=== PATIENT | male | born 1975 | race Caucasian/White ===

== ENCOUNTER 2018-06-11 16:36 | Emergency (ER) | payer BC, OTHER ==
[2018-06-11 17:12] LABS: #Basophils 0.1 thou/uL (0.0-0.2); #Eosinphils 0.1 thou/uL (0.0-0.7); #Lymphocytes 1.3 thou/uL (1.20-3.40); #Monocytes 0.5 thou/uL (0.11-0.59); #Neutrophils 3.2 thou/uL (1.40-6.50); %Basophils 1.4 % (0.0-1.0); %Eosinophils 2.5 % (0.0-10.0); %Lymphocytes 25.5 % (21.0-51.0); %Monocytes 8.7 % (0.0-10.0); %Neutrophils 61.9 % (42.0-75.0); Hemoglobin 11.3 g/dL (14.0-18.0); Mean Corpuscular HGB CONC 34.7 g/dL (32.0-36.0); Mean Corpuscular Hemoglobin 30.1 pg (27.0-31.0); Mean Corpuscular Volume 86.8 fL (78.0-98.0); Mean Platelet Volume 6.8 fL (7.4-10.4); Platelet Count 324 thou/uL (130-400); RBC Distribution Width 11.8 % (11.5-14.5); Red Blood Cell (RBC) Count 3.77 mill/uL (4.70-6.10); White Blood Cell (WBC) Count 5.1 thou/uL (4.8-10.8)
[2018-06-11 17:33] LABS: ALT (SGPT) 11 U/L (8-55); AST (SGOT) 16 U/L (5-34); Albumin 3.9 g/dL (3.5-5.0); Alkaline Phosphatase 39 U/L (40-150); Anion Gap 12 mmol/L (10-20); BUN (Urea Nitrogen) 15 mg/dL (8.9-20.6); Bilirubin, Total 0.5 mg/dL (0.2-1.2); Calc. Creatinine Clearance 0 mL/min (70-130); Carbon Dioxide 27 mmol/L (22-29); Chloride 103 mmol/L (98-107); Estimated GFR-MDRD 46; Globulin 2.8 g/dL (2.4-3.5); Glucose 110 mg/dL (70-105); Protein, Total 6.7 g/dL (6.0-8.3); Sodium 139 mmol/L (136-145)
[2018-06-11 17:41] LABS: INR-International Normal Ratio 1.1; PTT 27.5 SEC (22.9-36.1)
[2018-06-11 18:12] LABS: CKMB 0.6 ng/mL (0-6.6); Troponin I Less than 0.010 ng/mL (< 0.028)
[2018-06-11 18:20] LABS: Bilirubin Negative (Negative); Blood, Urine Negative (Negative); Clarity CLEAR (Clear); Glucose, Urine (Dipstick) Negative (Negative); Leukocyte Negative (Negative); Nitrite Negative (Negative); Protein, Urine (Dipstick) Negative (Neg-Trace); Specific Gravity, Urine 1.017 (1.002-1.036); Urobilinogen 0.2 mg/dL (0.2-1.0); pH, Urine 5.5 (5.0-9.0)
[2018-06-11] MEDS ORDERED: Potassium Chloride 20 MEQ TAB ONE (18:44)
== END 2018-06-11 20:10 | disposition home or self-care (01) ==
LOC: ERS 16:36
DX: E86.0 Dehydration (principal); E87.6 Hypokalemia; I10 Essential (primary) hypertension; J45.909 Unspecified asthma, uncomplicated; Z79.899 Other long term (current) drug therapy
CPT/HCPCS: 36415; 80053; 81003; 82553; 83690; 84484; 85025; 85610; 85730; 86850; 86900; 86901; 93005; 96360

== ENCOUNTER 2023-07-22 18:59 | Inpatient (IN) | payer BC, OTHER ==
[~2023-07-22 18:59] MED LIST: Iopamidol-370 76% 500 ML MDV (1 ML CHARGE) ONE
[2023-07-22] MEDS ORDERED: Cefepime 2 GM VIAL ONE (19:30)
[2023-07-22 19:34] LABS: Hemoglobin 12.2 g/dL (14.0-18.0); Mean Corpuscular Hemoglobin 25.4 pg (27.0-31.0); Mean Corpuscular Volume 76.9 fl (78.0-98.0); Mean Platelet Volume 8.9 fL (7.4-10.4); Platelet Count 359 10x3/uL (130-400); RBC Distribution Width 15.8 % (11.5-14.5); Red Blood Cell (RBC) Count 4.81 mill/uL (4.70-6.10); White Blood Cell (WBC) Count 14.8 10x3/uL (4.8-10.8)
[2023-07-22 19:38] LABS: Delete Auto Diff?? YES; Manual Diff?? YES
[2023-07-22] MEDS ORDERED: Acetaminophen 500 MG TAB ONE (19:43)
[2023-07-22] MEDS ORDERED: Vancomycin 1 GM/200 ML (FROZEN) BAG ONE (19:43)
[2023-07-22 19:57] LABS: ALT (SGPT) 18 U/L (8-55); AST (SGOT) 19 U/L (5-34); Albumin 3.4 g/dL (3.5-5.0); Alkaline Phosphatase 55 U/L (40-110); Anion Gap 17 mmol/L (10-20); BUN (Urea Nitrogen) 10 mg/dL (8.9-20.6); Bilirubin, Total 0.5 mg/dL (0.2-1.2); Calc. Creatinine Clearance 0 mL/min (70-130); Calcium 8.2 mg/dL (7.8-10.44); Carbon Dioxide 21 mmol/L (22-29); Chloride 97 mmol/L (98-107); Estimated GFR 62; Globulin 3.2 g/dL (2.4-3.5); Glucose 141 mg/dL (70-105); Lipase 10 U/L (8-78); Magnesium 1.4 mg/dL (1.6-2.6); Potassium 2.7 mmol/L (3.5-5.1); Protein, Total 6.6 g/dL (6.0-8.3); Sodium 132 mmol/L (136-145)
[2023-07-22 19:59] LABS: SARS-CoV-2 NAA Rapid Test Not Detected (NotDetected)
[2023-07-22 20:03] LABS: Band 49 % (5-11); CellaVision Operator ID LAB.JMM; Lymphocytes 4 % (21-51); Monocytes 8 % (0-10); Neutrophil 40 % (42-75); Platelet Adequacy Comment Platelets Normal; RBC Morphology Within Normal Limits; Total Cell Count 105
[2023-07-22] MEDS ORDERED: Potassium Chloride 20 MEQ TAB ONE (22:46)
[2023-07-22] MEDS ORDERED: Bisacodyl 5 MG TAB PO PRN (22:54)
[2023-07-22] MEDS ORDERED: HYDROcodone/Acetaminophen 5/325 mg Tablet PO PRN (22:54)
[2023-07-22] MEDS ORDERED: Acetaminophen 325 MG TAB PO PRN (22:54)
[2023-07-22] MEDS ORDERED: Piperacillin/Tazobactam 3.375 GM in Sodium Chloride 0.9% 100 ML IVPB SCH (23:00)
[2023-07-22] MEDS ORDERED: Sodium Chloride 0.9% 1,000 ML IV SCH (23:00)
[2023-07-22 23:04] LABS: Bacteria/HPF None Seen HPF (None Seen); Bilirubin Negative (Negative); Blood, Urine Negative (Negative); CAUTI Indications for Culture Fever or rigors; Clarity Clear (Clear); Glucose, Urine (Dipstick) Normal (Negative); Ketone, Urine Negative (Negative); Leukocyte Negative Leu/uL (Negative); Nitrite Negative (Negative); Protein, Urine (Dipstick) Negative (Neg-Trace); RBC/HPF None Seen HPF (0-3); Specific Gravity, Urine 1.016 (1.002-1.036); Squamous Epithelial None Seen HPF (0-3); Urobilinogen Normal mg/dL (Less than 2); WBC/HPF 0-3 HPF (0-3); pH, Urine 6.5 (5.0-9.0)
[2023-07-22 23:05] LABS: Urine Culture Reflex No No
[2023-07-22 23:19] LABS: Lactic Acid 1.4 mmol/L (0.5-2.2)
[2023-07-22 23:34] LABS: Troponin I Less than 0.010 ng/mL (< 0.028)
[2023-07-22] MEDS ORDERED: Piperacillin/Tazobactam 4.5 GM in Sodium Chloride 0.9% 100 ML IVPB SCH (23:59)
[2023-07-23] VITALS: BMI 48.6
[2023-07-23] MEDS ORDERED: Melatonin 3 MG TAB PO PRN ×2 (00:33→00:39)
[2023-07-23] MEDS ORDERED: VANCOMYCIN 2 GRAM/500 ML BAG 2 GM in Premix Bag 1 BAG IVPB SCH (00:45)
[2023-07-23] MEDS ORDERED: Potassium Chloride 20 MEQ TAB PO SCH (02:00)
[2023-07-23] MEDS: Piperacillin/Tazobactam 3.375 GM in Sodium Chloride 0.9% 100 ML IVPB SCH ×2 (05:40→09:43)
[2023-07-23 06:18] LABS: #Basophils 0.1 thou/uL (0.0-0.2); #Monocytes 1.3 thou/uL (0.11-0.59); #Neutrophils 13.7 thou/uL (1.40-6.50); %Basophils 0.3 % (0.0-1.0); %Eosinophils 0.2 % (0.0-10.0); %Lymphocytes 8.5 % (21.0-51.0); %Monocytes 7.7 % (0.0-10.0); Hemoglobin 11.9 g/dL (14.0-18.0); Mean Corpuscular HGB CONC 33.1 g/dL (32.0-36.0); Mean Corpuscular Hemoglobin 25.4 pg (27.0-31.0); Mean Corpuscular Volume 76.8 fl (78.0-98.0); Mean Platelet Volume 9.2 fL (7.4-10.4); Platelet Count 390 10x3/uL (130-400); RBC Distribution Width 16.1 % (11.5-14.5); Red Blood Cell (RBC) Count 4.69 mill/uL (4.70-6.10); White Blood Cell (WBC) Count 16.5 10x3/uL (4.8-10.8)
[2023-07-23 06:50] LABS: Troponin I Less than 0.010 ng/mL (< 0.028)
[2023-07-23 06:56] LABS: ALT (SGPT) 18 U/L (8-55); AST (SGOT) 15 U/L (5-34); Albumin 3.3 g/dL (3.5-5.0); Alkaline Phosphatase 58 U/L (40-110); Anion Gap 14 mmol/L (10-20); BUN (Urea Nitrogen) 10 mg/dL (8.9-20.6); Bilirubin, Total 0.9 mg/dL (0.2-1.2); Calc. Creatinine Clearance 158 mL/min (70-130); Carbon Dioxide 23 mmol/L (22-29); Chloride 102 mmol/L (98-107); Estimated GFR 74; Globulin 3.2 g/dL (2.4-3.5); Glucose 112 mg/dL (70-105); Potassium 2.9 mmol/L (3.5-5.1); Protein, Total 6.5 g/dL (6.0-8.3); Sodium 136 mmol/L (136-145)
[2023-07-23] MEDS ORDERED: Potassium Bicarbonate/Cit Ac 20 MEQ TAB PO SCH (08:30)
[2023-07-23] MEDS ORDERED: Sodium Bicarbonate Tab 325 MG TAB PO SCH (09:00)
[2023-07-23] MEDS ORDERED: Vancomycin 1.5 GRAM/300 ML BAG 1.5 GM in Premix Bag 1 BAG IVPB SCH (09:00)
[2023-07-23] MEDS: Heparin 5,000 UNITS/ML VIAL SC SCH ×2 (09:48→15:46)
[2023-07-23 12:43] VITALS: BP 120/80; TEMP 97.6
[2023-07-23 13:22] LABS: Campy jejuni + coli by PCR Negative (Negative); STEC Shiga Toxin 1+2 Negative (Negative); Salmonella spp. by PCR Negative (Negative); Shigella spp + EIEC by PCR POSITIVE (Negative)
[2023-07-23] MEDS ORDERED: VANCOMYCIN 1.25 GM/250 ML BAG 1.25 GM in Premix Bag 1 BAG IVPB SCH (14:00)
[2023-07-23 15:22] LABS: Troponin I 0.017 ng/mL (< 0.028)
== END 2023-07-23 17:42 | disposition home or self-care (01) | DRG 862 ==
LOC: ERS 18:59 → SJJU 22:11 → OBSVTOIN 07-23 12:41
PROVIDERS: ADMIT Internal Medicine Nephrology; ATTEND Hospitalist
DX: T81.49XA Infection following a procedure, other surgical site, initial encounter (principal); A41.9 Sepsis, unspecified organism; L03.311 Cellulitis of abdominal wall; E87.20 Acidosis, unspecified; Z68.42 Body mass index [BMI] 45.0-49.9, adult; A04.9 Bacterial intestinal infection, unspecified; A09 Infectious gastroenteritis and colitis, unspecified; N17.9 Acute kidney failure, unspecified; I10 Essential (primary) hypertension; D50.9 Iron deficiency anemia, unspecified; J45.909 Unspecified asthma, uncomplicated; Z20.822 Contact with and (suspected) exposure to COVID-19; E87.6 Hypokalemia; E66.9 Obesity, unspecified; I95.9 Hypotension, unspecified; Y83.8 Other surgical procedures as the cause of abnormal reaction of the patient, or of later complication, without mention of misadventure at the time of the procedure
CPT/HCPCS: 36415; 71045; 74177; 80053; 81001; 83605; 83690; 83735; 84484; 85025; 87040; 87086; 87324; 87449; 87505; 93005; J0692; J2543; J3370; J3370-JW; J3490; J7050

== ENCOUNTER 2023-08-04 11:53 | Inpatient (IN) | payer BC, OTHER ==
[2023-08-04 12:29] LABS: #Basophils 0.1 thou/uL (0.0-0.2); #Eosinphils 0.2 thou/uL (0.0-0.7); #Monocytes 0.4 thou/uL (0.11-0.59); #Neutrophils 6.5 thou/uL (1.40-6.50); %Basophils 0.7 % (0.0-1.0); %Eosinophils 1.8 % (0.0-10.0); %Lymphocytes 16.8 % (21.0-51.0); %Neutrophils 75.4 % (42.0-75.0); Hematocrit 37.4 % (42.0-52.0); Hemoglobin 12.3 g/dL (14.0-18.0); Mean Corpuscular HGB CONC 32.9 g/dL (32.0-36.0); Mean Corpuscular Hemoglobin 25.4 pg (27.0-31.0); Mean Corpuscular Volume 77.3 fl (78.0-98.0); Platelet Count 529 10x3/uL (130-400); RBC Distribution Width 16.5 % (11.5-14.5); Red Blood Cell (RBC) Count 4.84 mill/uL (4.70-6.10); White Blood Cell (WBC) Count 8.7 10x3/uL (4.8-10.8)
[2023-08-04] MEDS ORDERED: Vancomycin 1 GM/200 ML (FROZEN) BAG ONE (12:46)
[2023-08-04] MEDS ORDERED: Cefepime 2 GM VIAL ONE (12:46)
[2023-08-04 12:54] LABS: ALT (SGPT) 25 U/L (8-55); AST (SGOT) 30 U/L (5-34); Alkaline Phosphatase 58 U/L (40-110); Anion Gap 17 mmol/L (10-20); BUN (Urea Nitrogen) 12 mg/dL (8.9-20.6); Bilirubin, Total 0.5 mg/dL (0.2-1.2); Calc. Creatinine Clearance 0 mL/min (70-130); Calcium 9.2 mg/dL (7.8-10.44); Carbon Dioxide 25 mmol/L (22-29); Chloride 100 mmol/L (98-107); Estimated GFR 82; Glucose 97 mg/dL (70-105); Potassium 3.3 mmol/L (3.5-5.1); Sodium 139 mmol/L (136-145)
[2023-08-04] MEDS ORDERED: VANCOMYCIN 2 GRAM/500 ML BAG 2 GM in Premix Bag 1 BAG IVPB SCH (13:30)
[2023-08-04 14:38] LABS: Bacteria/HPF None Seen HPF (None Seen); Bilirubin Negative (Negative); Blood, Urine Negative (Negative); CAUTI Indications for Culture Pelvic or flank pain; Clarity Clear (Clear); Glucose, Urine (Dipstick) Normal (Negative); Ketone, Urine Negative (Negative); Leukocyte Negative Leu/uL (Negative); Nitrite Negative (Negative); Protein, Urine (Dipstick) Negative (Neg-Trace); RBC/HPF 0-3 HPF (0-3); Specific Gravity, Urine 1.019 (1.002-1.036); Squamous Epithelial None Seen HPF (0-3); Urobilinogen Normal mg/dL (Less than 2); WBC/HPF 0-3 HPF (0-3)
[2023-08-04 14:40] LABS: Urine Culture Reflex No No
[2023-08-04] MEDS ORDERED: HYDROcodone/Acetaminophen 5/325 mg Tablet PO PRN ×2 (15:03)
[2023-08-04] MEDS ORDERED: Acetaminophen 325 MG TAB PO PRN (15:03)
[2023-08-04] MEDS ORDERED: Pharmacy to Dose VANCOMYCIN, CEFEPIME IVPB PRN (15:07)
[2023-08-04] MEDS ORDERED: Potassium Chloride 20 MEQ TAB PO SCH (15:15)
[2023-08-04] MEDS ORDERED: Albuterol 200 PUFF (6.7GM INHALER) INH PRN (15:15)
[2023-08-04 16:56] VITALS: BMI 48.2
[2023-08-04] MEDS: Mometasone 100 MCG/Formoterol 5 MCG 120 PUFF INHALER INH SCH (18:46)
[2023-08-04] MEDS ORDERED: Melatonin 3 MG TAB PO PRN (20:07)
[2023-08-05] MEDS ORDERED: Cefepime 1 GM in Sodium Chloride 0.9% 100 ML IVPB SCH (01:00)
[2023-08-05] MEDS: Vancomycin 1.5 GRAM/300 ML BAG 1.5 GM in Premix Bag 1 BAG IVPB SCH ×2 (02:22→15:24)
[2023-08-05 07:06] LABS: #Basophils 0.1 thou/uL (0.0-0.2); #Eosinphils 0.3 thou/uL (0.0-0.7); #Monocytes 0.5 thou/uL (0.11-0.59); #Neutrophils 5.5 thou/uL (1.40-6.50); %Basophils 0.6 % (0.0-1.0); %Eosinophils 3.4 % (0.0-10.0); %Lymphocytes 19.3 % (21.0-51.0); %Monocytes 6.9 % (0.0-10.0); %Neutrophils 69.4 % (42.0-75.0); Hemoglobin 11.2 g/dL (14.0-18.0); Mean Corpuscular Hemoglobin 24.9 pg (27.0-31.0); Mean Platelet Volume 9.2 fL (7.4-10.4); Platelet Count 474 10x3/uL (130-400); RBC Distribution Width 16.6 % (11.5-14.5); Red Blood Cell (RBC) Count 4.49 mill/uL (4.70-6.10); White Blood Cell (WBC) Count 7.9 10x3/uL (4.8-10.8)
[2023-08-05] MEDS: Mometasone 100 MCG/Formoterol 5 MCG 120 PUFF INHALER INH SCH ×2 (07:13→19:18)
[2023-08-05 07:28] LABS: Anion Gap 13 mmol/L (10-20); BUN (Urea Nitrogen) 10 mg/dL (8.9-20.6); Calc. Creatinine Clearance 195 mL/min (70-130); Calcium 8.4 mg/dL (7.8-10.44); Carbon Dioxide 25 mmol/L (22-29); Chloride 103 mmol/L (98-107); Estimated GFR 96; Glucose 93 mg/dL (70-105); Potassium 3.2 mmol/L (3.5-5.1); Sodium 138 mmol/L (136-145)
[2023-08-05] MEDS: Loratadine 10 MG TAB PO SCH (08:08)
[2023-08-05] MEDS: Lisinopril/Hydrochlorothiazide 10 mg/12.5 mg Tablet PO SCH (08:09)
[2023-08-05] MEDS ORDERED: EMTRICITABINE PO SCH (09:00)
[2023-08-05] MEDS ORDERED: TENOFOV ALAFENAM PO SCH (09:00)
[2023-08-05] MEDS: Cefepime 2 GM in Sodium Chloride 0.9% 100 ML IVPB SCH (13:00)
[2023-08-05] MEDS: Melatonin 3 MG TAB PO SCH (20:07)
[2023-08-05] MEDS: Potassium Chloride 20 MEQ TAB PO SCH (20:08)
[2023-08-06] MEDS: Cefepime 2 GM in Sodium Chloride 0.9% 100 ML IVPB SCH ×2 (01:32→13:58)
[2023-08-06 02:53] LABS: Vancomycin, Trough 14.3 ug/mL
[2023-08-06] MEDS: Vancomycin 1.5 GRAM/300 ML BAG 1.5 GM in Premix Bag 1 BAG IVPB SCH ×2 (03:03→15:55)
[2023-08-06] MEDS ORDERED: Vancomycin 1.5 GRAM/300 ML BAG 1.5 GM in Premix Bag 1 BAG IVPB SCH (04:00)
[2023-08-06 05:49] LABS: #Basophils 0.1 thou/uL (0.0-0.2); #Eosinphils 0.3 thou/uL (0.0-0.7); #Monocytes 0.7 thou/uL (0.11-0.59); #Neutrophils 5.2 thou/uL (1.40-6.50); %Basophils 0.8 % (0.0-1.0); %Monocytes 8.2 % (0.0-10.0); %Neutrophils 65.6 % (42.0-75.0); Hematocrit 34.6 % (42.0-52.0); Hemoglobin 11.1 g/dL (14.0-18.0); Mean Corpuscular HGB CONC 32.1 g/dL (32.0-36.0); Mean Corpuscular Hemoglobin 25.2 pg (27.0-31.0); Mean Corpuscular Volume 78.6 fl (78.0-98.0); Mean Platelet Volume 8.8 fL (7.4-10.4); Platelet Count 445 10x3/uL (130-400); RBC Distribution Width 16.6 % (11.5-14.5); White Blood Cell (WBC) Count 7.9 10x3/uL (4.8-10.8)
[2023-08-06 06:21] LABS: Anion Gap 10 mmol/L (10-20); BUN (Urea Nitrogen) 11 mg/dL (8.9-20.6); Calc. Creatinine Clearance 206 mL/min (70-130); Calcium 8.7 mg/dL (7.8-10.44); Carbon Dioxide 27 mmol/L (22-29); Chloride 104 mmol/L (98-107); Estimated GFR 102; Glucose 94 mg/dL (70-105); Potassium 3.1 mmol/L (3.5-5.1); Sodium 138 mmol/L (136-145)
[2023-08-06] MEDS: Mometasone 100 MCG/Formoterol 5 MCG 120 PUFF INHALER INH SCH ×2 (06:29→19:08)
[2023-08-06] MEDS: Potassium Chloride 20 MEQ TAB PO SCH ×2 (08:51→20:12)
[2023-08-06] MEDS: Loratadine 10 MG TAB PO SCH (08:51)
[2023-08-06] MEDS: Lisinopril/Hydrochlorothiazide 10 mg/12.5 mg Tablet PO SCH (08:52)
[2023-08-06] MEDS: Amlodipine 10 MG TAB PO SCH (08:52)
[2023-08-06] MEDS: Hydrochlorothiazide 25 MG TAB PO SCH (08:52)
[2023-08-06] MEDS ORDERED: Loratadine 10 MG TAB PO SCH (09:00)
[2023-08-06] MEDS ORDERED: Iron Polysaccharides Complex 150 MG CAP PO SCH (09:00)
[2023-08-06] MEDS ORDERED: Saccharomyces boulardii 250 MG CAP PO SCH (11:45)
[2023-08-06] MEDS ORDERED: Cefepime 2 GM VIAL ONE (13:50)
[2023-08-06] MEDS: Melatonin 3 MG TAB PO SCH (20:13)
[2023-08-07] MEDS: Cefepime 2 GM in Sodium Chloride 0.9% 100 ML IVPB SCH ×2 (01:16→12:46)
[2023-08-07] MEDS: Vancomycin 1.5 GRAM/300 ML BAG 1.5 GM in Premix Bag 1 BAG IVPB SCH (04:02)
[2023-08-07] MEDS: Mometasone 100 MCG/Formoterol 5 MCG 120 PUFF INHALER INH SCH (06:05)
[2023-08-07 06:08] LABS: Anion Gap 12 mmol/L (10-20); BUN (Urea Nitrogen) 10 mg/dL (8.9-20.6); Calc. Creatinine Clearance 198 mL/min (70-130); Calcium 8.3 mg/dL (7.8-10.44); Carbon Dioxide 21 mmol/L (22-29); Chloride 107 mmol/L (98-107); Estimated GFR 97; Glucose 87 mg/dL (70-105); Potassium 3.4 mmol/L (3.5-5.1); Sodium 137 mmol/L (136-145)
[2023-08-07] MEDS: Amlodipine 10 MG TAB PO SCH (08:15)
[2023-08-07] MEDS: Hydrochlorothiazide 25 MG TAB PO SCH (08:15)
[2023-08-07] MEDS: Loratadine 10 MG TAB PO SCH (08:16)
[2023-08-07] MEDS: Potassium Chloride 20 MEQ TAB PO SCH (08:16)
[2023-08-07] MEDS ORDERED: Saccharomyces boulardii 250 MG CAP PO SCH (09:00)
[2023-08-07 13:12] VITALS: BP 137/91; TEMP 98.5
== END 2023-08-07 13:13 | disposition home or self-care (01) | DRG 603 ==
LOC: ERS 11:53 → SUATTDRO 11:53 → T4-B 15:03
PROVIDERS: ADMIT Family Medicine; ATTEND Family Medicine
DX: L03.311 Cellulitis of abdominal wall (principal); Z68.42 Body mass index [BMI] 45.0-49.9, adult; M79.3 Panniculitis, unspecified; I10 Essential (primary) hypertension; D50.9 Iron deficiency anemia, unspecified; J45.909 Unspecified asthma, uncomplicated; E87.6 Hypokalemia; E66.01 Morbid (severe) obesity due to excess calories; Z90.49 Acquired absence of other specified parts of digestive tract; Z98.890 Other specified postprocedural states; Z79.899 Other long term (current) drug therapy
CPT/HCPCS: 36415; 80048; 80053; 80202; 81001; 83605; 85025; 86140; 87040; 87070; 87086; 87205; 96365; 96366; 96367; 97139; J0692; J1650; J3370; J3370-JW; J3490; J7030